=== PATIENT | female | born 1970 | race Caucasian/White ===

== ENCOUNTER 2018-03-04 14:19 | Emergency (ER) | payer OTHER ==
[~2018-03-04] VITALS: Ht 170.2 cm; Wt 119.3 kg
[2018-03-04] MEDS ORDERED: VITAMIN D2000 UNIT PO (14:42)
[2018-03-04] MEDS ORDERED: ATROVEN NASAL (15:20)
[2018-03-04] MEDS ORDERED: MECLIZINE HCL25 MG PO (15:20)
[2018-03-04 15:35] VITALS: BP 128/70
== END 2018-03-04 15:36 | disposition home or self-care (01) ==
LOC: M.ERS 14:19
DX: H69.92 Unspecified Eustachian tube disorder, left ear (principal); R42 Dizziness and giddiness; G43.909 Migraine, unspecified, not intractable, without status migrainosus; G47.30 Sleep apnea, unspecified; Z90.710 Acquired absence of both cervix and uterus